=== PATIENT | male | born 1995 | race Two or more races ===

== ENCOUNTER 2018-02-16 21:10 | Emergency (ER) | payer OTHER ==
[~2018-02-16] VITALS: Ht 175.3 cm; Wt 68.0 kg
[2018-02-16 21:14] VITALS: BP 153/92
[2018-02-16] MEDS ORDERED: BACITRACIN TOP OINT 1 UD PKG TOP ONE (22:00)
[2018-02-16] MEDS ORDERED: LET TOPICAL SOLN 5 ML TOP ONE (22:00)
[2018-02-16] MEDS ORDERED: LIDOCAINE 1% (LOCAL ANESTH.) PF 5ml SDV ID ONE (22:00)
[2018-02-16] MEDS ORDERED: LIDOCAINE 1% (LOCAL ANESTH.) PF 5ml SDV ONE (22:03)
[2018-02-16] MEDS ORDERED: TETANUS-DIPTH-ACEL PERTUSSIS 0.5ML SYRG IM ONE (22:15)
== END 2018-02-16 22:30 | disposition home or self-care (01) ==
LOC: ER 21:10
DX: S61.211A Laceration without foreign body of left index finger without damage to nail, initial encounter (principal); W26.0XXA Contact with knife, initial encounter; Y93.89 Activity, other specified; Y99.8 Other external cause status; Y92.89 Other specified places as the place of occurrence of the external cause
CPT/HCPCS: 12001; 90715; 99283; J7040

== ENCOUNTER 2018-02-23 22:18 | Emergency (ER) | payer OTHER ==
[~2018-02-23] VITALS: Ht 175.3 cm; Wt 68.0 kg
[2018-02-24] MEDS ORDERED: LIDOCAINE 1% (LOCAL ANESTH.) PF 5ml SDV ID ONE (00:15)
[2018-02-24] MEDS ORDERED: BACITRACIN TOP OINT 1 UD PKG TOP ONE (00:15)
[2018-02-24 01:08] VITALS: BP 128/79
== END 2018-02-24 01:12 | disposition home or self-care (01) ==
LOC: ER 22:18
DX: S61.211A Laceration without foreign body of left index finger without damage to nail, initial encounter (principal); X58.XXXA Exposure to other specified factors, initial encounter; Y93.89 Activity, other specified; Y92.89 Other specified places as the place of occurrence of the external cause; Y99.8 Other external cause status
CPT/HCPCS: 12001

== ENCOUNTER 2023-08-25 23:07 | Emergency (ER) | payer OTHER ==
[~2023-08-25] VITALS: Ht 172.7 cm; Wt 76.0 kg
[2023-08-25 23:48] VITALS: BP 145/102; PULSE 20; RESP 20; O2SAT 95
== END 2023-08-26 02:14 | disposition left against medical advice (07) ==
LOC: ER 23:07
DX: R42 Dizziness and giddiness (principal); Z53.21 Procedure and treatment not carried out due to patient leaving prior to being seen by health care provider